=== PATIENT | female | born 1990 | race Caucasian/White ===

== ENCOUNTER 2020-05-25 11:20 | Outpatient (CLI) | payer BC ==
[~2020-05-25] VITALS: Ht 162.6 cm; Wt 76.3 kg
[2020-05-25 11:54] VITALS: BP 112/64
[2020-05-25 11:56] VITALS: BP 112/64
[2020-05-25] MEDS ORDERED: PREN1TAB60 PO (12:00)
[2020-05-25] MEDS ORDERED: ACET650S21 PO (12:01)
[2020-05-25] MEDS ORDERED: MESA800T9 PO (12:35)
== END 2020-05-25 14:30 | disposition home or self-care (01) ==
LOC: LDOP 11:20
PROVIDERS: ATTEND Obstetrics & Gynecology
DX: O26.893 Other specified pregnancy related conditions, third trimester (principal); R10.9 Unspecified abdominal pain; Z3A.40 40 weeks gestation of pregnancy
CPT/HCPCS: 59025

== ENCOUNTER 2020-05-26 03:27 | Inpatient (IN) | payer BC ==
[~2020-05-26] VITALS: Ht 162.6 cm; Wt 76.2 kg
[~2020-05-26 03:27] MED LIST: ACET650S21 PO; MESA800T9 PO; PREN1TAB60 PO
[2020-05-26 03:40] VITALS: BP 113/59
[2020-05-26] MEDS ORDERED: D5%-LACTATED RINGERS 1,000 ML IV SCH (03:52)
[2020-05-26] MEDS ORDERED: OXYTOCIN 30U/ 0.9% NaCL 500ML 500 ML IV ONE (03:52)
[2020-05-26] MEDS ORDERED: FENTANYL/BUPIV./NS/PF 250 ML EPIDCONT SCH ×2 (03:55→10:19)
[2020-05-26] MEDS ORDERED: SODIUM CHLORIDE FLUSH 10ML SYR IVF PRN (04:00)
[2020-05-26] MEDS ORDERED: SODIUM CITRATE/CITRIC ACID 30 ML UDC PO PRN (04:00)
[2020-05-26] MEDS ORDERED: TERBUTALINE 1 MG/ML, 1ML SQ PRN (04:00)
[2020-05-26] MEDS ORDERED: METOCLOPRAMIDE 5 MG/ML, 2ML IVPush PRN (04:00)
[2020-05-26] MEDS ORDERED: FENTANYL PF 100 MCG/2ML IV PRN (04:00)
[2020-05-26] MEDS ORDERED: ALUMINUM/MAG/SIMETHICONE 30 ML UDC PO PRN (04:00)
[2020-05-26] MEDS ORDERED: TERBUTALINE 1 MG/ML, 1ML IVPush PRN (04:00)
[2020-05-26] MEDS ORDERED: CALCIUM CARBONATE 500 MG TAB.CHEW PO PRN (04:00)
[2020-05-26] MEDS ORDERED: ONDANSETRON 2MG/ML, 2ML IVPush PRN (04:00)
[2020-05-26] MEDS ORDERED: NEWBORN KIT ONE (04:07)
[2020-05-26] MEDS: LACTATED RINGERS 1,000 ML IV SCH ×4 (04:15→13:40)
[2020-05-26] MEDS ORDERED: FENTANYL PF 100 MCG/2ML ONE ×3 (04:21→10:34)
[2020-05-26] MEDS ORDERED: LIDOCAINE 1%, 20ML ONE (04:22)
[2020-05-26] MEDS ORDERED: MISOPROSTOL 200 MCG TABLET ONE (04:22)
[2020-05-26] MEDS: FENTANYL PF 100 MCG/2ML IVPush PRN ×2 (04:36→09:00)
[2020-05-26 04:40] LABS: BASOPHILS # (AUTO) 0.03 x10^3/uL (0-0.1); BASOPHILS % (AUTO) 0 % (0-1); EOSINOPHILS % (AUTO) 1 % (1-7); LYMPHOCYTES # (AUTO) 1.69 x10^3/uL (1-3.4); LYMPHOCYTES % (AUTO) 16 % (22-44); MD SCAN; MEAN CORPUSCULAR HEMOGLOBIN 35.5 pg (27.0-34.8); MEAN CORPUSCULAR HGB CONC 34.8 g/dL (32.4-35.8); MEAN CORPUSCULAR VOLUME 102.2 fL (80-100); MEAN PLATELET VOLUME 11.2 fL (7.4-10.4); MONOCYTES # (AUTO) 0.67 x10^3/uL (0.2-0.8); MONOCYTES % (AUTO) 6 % (2-9); NEUTROPHILS # (AUTO) 8.16 x10^3/uL (1.8-6.8); NEUTROPHILS % (AUTO) 77 % (42-75); PLATELET COUNT 107 x10^3/uL (130-400); RED BLOOD COUNT 3.87 x10^6/uL (3.82-5.3); RED CELL DISTRIBUTION WIDTH 12.7 % (9.6-15.2)
[2020-05-26 05:17] VITALS: BP 113/59
[2020-05-26] MEDS ORDERED: OXYTOCIN 30U/ 0.9% NaCL 500ML 500 ML ONE ×2 (06:50→17:58)
[2020-05-26] MEDS ORDERED: OXYTOCIN 30U/ 0.9% NaCL 500ML 500 ML IV PRN (06:55)
[2020-05-26] MEDS ORDERED: LACTATED RINGERS 1,000 ML IVBOLUS PRN (10:30)
[2020-05-26] MEDS ORDERED: LIDOCAINE/PF 1.5%-EPI 1:200K, 30ML ONE (10:30)
[2020-05-26] MEDS ORDERED: EPHEDRINE 50 MG/ML, 1ML IVPush PRN (10:30)
[2020-05-26] MEDS ORDERED: BUPIVACAINE 0.25% ONE (10:34)
[2020-05-26] MEDS ORDERED: FENTANYL/BUPIV./NS/PF 250 ML EPIDCONT ONE (10:35)
[2020-05-26] MEDS ORDERED: FENT 2mcg/ml BUPIV 0.125%NS/PF EPIDCONT ONE (10:38)
[2020-05-26] MEDS ORDERED: LACTATED RINGERS 1,000 ML INTUTE SCH (13:30)
[2020-05-26] MEDS ORDERED: LACTATED RINGERS 1,000 ML INTUTE PRN (13:30)
[2020-05-26] MEDS ORDERED: BISACODYL 10 MG SUPP PR PRN (17:30)
[2020-05-26] MEDS ORDERED: HYDROcodone/APAP 5/325 TABLET PO PRN (17:30)
[2020-05-26] MEDS ORDERED: RHOGAM FROM BLOOD BANK 1 NOTE EA IM/IV ONE (17:30)
[2020-05-26] MEDS ORDERED: MISOPROSTOL 200 MCG TABLET PR PRN (17:30)
[2020-05-26] MEDS ORDERED: ONDANSETRON 2MG/ML, 2ML IV PRN (17:30)
[2020-05-26] MEDS ORDERED: ACETAMINOPHEN 325 MG TABLET PO PRN (17:30)
[2020-05-26] MEDS ORDERED: IBUPROFEN 600 MG TABLET ONE (17:58)
[2020-05-26] MEDS: OXYTOCIN 30U/ 0.9% NaCL 500ML 500 ML IV SCH (18:00)
[2020-05-26 20:07] VITALS: BP 104/59
[2020-05-26 23:51] VITALS: BP 97/62
[2020-05-27 00:58] LABS: MEAN CORPUSCULAR HEMOGLOBIN 34.7 pg (27.0-34.8); MEAN CORPUSCULAR HGB CONC 33.1 g/dL (32.4-35.8); MEAN CORPUSCULAR VOLUME 104.9 fL (80-100); MEAN PLATELET VOLUME 10.6 fL (7.4-10.4); PLATELET COUNT 97 x10^3/uL (130-400); RED BLOOD COUNT 3.57 x10^6/uL (3.82-5.3); RED CELL DISTRIBUTION WIDTH 12.8 % (9.6-15.2)
[2020-05-27 01:45] LABS: BASOPHILS # (AUTO) 0.05 x10^3/uL (0-0.1); BASOPHILS % (AUTO) 0 % (0-1); EOSINOPHILS # (AUTO) 0.02 x10^3/uL (0-0.4); EOSINOPHILS % (AUTO) 0 % (1-7); LYMPHOCYTES # (AUTO) 1.34 x10^3/uL (1-3.4); LYMPHOCYTES % (AUTO) 11 % (22-44); MD SCAN; MONOCYTES # (AUTO) 0.74 x10^3/uL (0.2-0.8); MONOCYTES % (AUTO) 6 % (2-9); NEUTROPHILS # (AUTO) 10.14 x10^3/uL (1.8-6.8); NEUTROPHILS % (AUTO) 82 % (42-75)
[2020-05-27] MEDS: IBUPROFEN 800 MG TABLET PO PRN ×3 (02:24→19:54)
[2020-05-27] MEDS: OXYTOCIN 30U/ 0.9% NaCL 500ML 500 ML IV SCH ×3 (03:18→23:18)
[2020-05-27 05:35] VITALS: BP 105/63
[2020-05-27] MEDS: OXYcodone/APAP 5/325MG TABLET PO PRN ×4 (07:24→19:54)
[2020-05-27 07:25] VITALS: BP 111/76
[2020-05-27] MEDS: PRENATAL VIT/IRON/FA 1 EACH TABLET PO SCH (07:25)
[2020-05-27 15:00] VITALS: BP 104/70
[2020-05-27] MEDS: DOCUSATE 100 MG CAPSULE PO PRN (19:54)
[2020-05-27 20:00] VITALS: BP 111/73
[2020-05-28] MEDS: OXYcodone/APAP 5/325MG TABLET PO PRN ×3 (00:01→09:15)
[2020-05-28] MEDS: IBUPROFEN 800 MG TABLET PO PRN ×2 (04:07→12:21)
[2020-05-28] MEDS: DOCUSATE 100 MG CAPSULE PO PRN (09:15)
[2020-05-28] MEDS: PRENATAL VIT/IRON/FA 1 EACH TABLET PO SCH (09:15)
[2020-05-28] MEDS: OXYTOCIN 30U/ 0.9% NaCL 500ML 500 ML IV SCH (09:18)
[2020-05-28 09:30] VITALS: BP 100/67
[2020-05-28] MEDS ORDERED: OXYC-302 PO (11:50)
[2020-05-28] MEDS ORDERED: IBUP-1223 PO (11:52)
[2020-05-28] MEDS ORDERED: DOCU-131 PO (11:55)
== END 2020-05-28 13:22 | disposition home or self-care (01) | DRG 807 ==
LOC: LDOP 03:27 → LDIP 03:58 → 2NW 19:35
PROVIDERS: ADMIT Obstetrics & Gynecology; ATTEND Obstetrics & Gynecology
PROC: 10E0XZZ Delivery of Products of Conception, External Approach (ICD-10-PCS; principal; 2020-05-26)
PROC: 3E0R3BZ Introduction of Anesthetic Agent into Spinal Canal, Percutaneous Approach (ICD-10-PCS; 2020-05-26)
PROC: 00HU33Z Insertion of Infusion Device into Spinal Canal, Percutaneous Approach (ICD-10-PCS; 2020-05-26)
PROC: 0UQGXZZ Repair Vagina, External Approach (ICD-10-PCS; 2020-05-26)
DX: O99.12 Other diseases of the blood and blood-forming organs and certain disorders involving the immune mechanism complicating childbirth (principal); Z37.0 Single live birth; Z3A.40 40 weeks gestation of pregnancy; O71.4 Obstetric high vaginal laceration alone; D69.6 Thrombocytopenia, unspecified; O42.92 Full-term premature rupture of membranes, unspecified as to length of time between rupture and onset of labor
CPT/HCPCS: 36415; J3490; J7121; 85025; 86592; 86850; 86900; G0378; J3010; J2590; J7120